=== PATIENT | female | born 1960 | race Hispanic/Latino ===

== ENCOUNTER 2016-12-21 17:58 | Observation (INO) | payer MEDICAID ==
--- NOTE | 2016-12-21 19:18 | CT ---
EXAM: CT Head Without Intravenous Contrast CLINICAL HISTORY: 56 years old, female; Signs and symptoms; Weakness, extremity; Left; Additional info: Code stroke TECHNIQUE: Axial computed tomography images of the head/brain without intravenous contrast. This CT exam was performed using one or more of the following dose reduction techniques: automated exposure control, adjustment of the mA and/or kV according to patient size, and/or use of iterative reconstruction technique. Coronal and sagittal reformatted images were created and reviewed. EXAM DATE/TIME: 12/21/2016 6:58 PM COMPARISON: CT - HEAD W/O CONTRAST 04/20/2016 5:10:04 PM FINDINGS: Brain: Ventricles are normal in size and configuration. There is no midline shift. There are no intra-axial or extra-axial mass lesions or areas of hemorrhage. There are no abnormal fluid collections. Bruno-white differentiation is maintained. Ventricles: See above. Bones: Cranial vault is intact. Soft tissues: unremarkable Sinuses: There is no acute sinusitis. Ears and mastoids: Middle ears and mastoids are unremarkable Orbits: Orbital contents are unremarkable. IMPRESSION: No acute intracranial abnormality
--- NOTE | 2016-12-21 19:31 | ED PDOC ---
HPI:STROKE - Time Time: 19:00 - Historian Historian: Patient - Chief Complaint Chief Complaint: Numbness - Onset Date: 12/21/16 Time: 13:00 Onset: Hours - Timing Timing: Improved - Context Context: Standing - Location Locate left: Upper extremity - Radiation Radiation: None - Severity of pain Maximum severity:: Mild Pain Scale:: 0 Severity Current: None Pain Scale:: 0 - Quality of Pain Quality of Pain:: Pressure - Associated Symptoms Associated symptoms:: Headache, Numbness - Exacerbated by Exacerbated by:: Nothing - Relieved by Relieved by:: Nothing - TPA Positive for Contraindication: Yes Reason tPA is not being Administered: symptoms resolved and onset is out of window for TPA - Notes: Notes:: Pt co dizziness, headache, left arm numbness and tongue numbness 6 hours ago around 1pm. All symptoms resolved except mild headache at this time. Denies weakness or slurred speech NIHSS Stroke Scale - Date/Time Evaluation Performed Date Performed: 12/21/16 Time Performed: 19:15 When Was NIHSS Performed: Baseline - How Severe is the Stroke Level of Consciousness: 0=Alert LOC to Questions: 0=Both comments correct LOC to commands: 0=Obeys both correctly Best Gaze: 0=Normal Visual: 0=No visual loss Facial: 0=Normal Motor Arm - Left: 0=No drift Motor Arm - Right: 0=No drift Motor Leg - Left: 0=No drift Motor Leg - Right: 0=No drift Limb Ataxia: 0=Absent Sensory: 0=Normal Best Language: 0=No aphasia Dysarthia: 0=Normal articulation Extinction & Inattention (Neglect): 0=Normal, no object Score: 0 rTPA Inclusion/Exclusion - Refusal of Treatment Patient Refused Treatment: No - Inclusion Criteria for Altepase Patient is 18 years or Older: Yes The Clinical Diagnosis of Ischemic Stroke That is Causing a Potentially Disabling Neurological Deficit: No Time of Onset is Well Established to be Less Than 270 Minute Before Treatment Would Begin: No Risk/Benefit Discussed With Patient/Family Member Present: No Past Medical History Reviewed: Historical Data, Nursing Documentation, Vital Signs Vital Signs: Last Vital Signs Temp 98.4 F 12/21/16 18:48 Pulse 88 12/21/16 18:48 Resp 18 12/21/16 18:48 BP 135/91 H 12/21/16 18:48 Pulse Ox 99 12/21/16 18:48 - Medical History PMH: Anxiety, HTN - Surgical History Surgical History: No Surg Hx - Family History Family History: States: Unknown Family Hx - Home Medications Home Medications: Ambulatory Orders Medication Instructions Recorded Nitrofurantoin Macrocrystals 100 mg PO BID #14 cap 11/24/15 [Macrobid] Ciprofloxacin HCl [Cipro] 250 mg PO BID #14 tab 12/04/15 Metoclopramide [Reglan] 10 mg PO Q6 PRN #12 tab 04/20/16 - Allergies Allergies/Adverse Reactions: Allergies Allergy/AdvReac Type Severity Reaction Status Date / Time No Known Allergies Allergy Verified 12/21/16 18:27 Review of Systems ROS Statement: Except As Marked, All Systems Reviewed And Found Negative Constitutional: Negative for: Fever Cardiovascular: Negative for: Chest Pain Respiratory: Negative for: Cough Gastrointestinal: Negative for: Abdominal Pain, Diarrhea Musculoskeletal: Negative for: Neck Pain, Back Pain Neurological: Positive for: Numbness, Headache, Dizziness. Negative for: Weakness, Incoordination, Change in Speech, Confusion, Seizures Physical Exam - Reviewed Nursing Documentation Reviewed: Yes Vital Signs Reviewed: Yes - Physical Exam Appears: Positive for: Non-toxic, No Acute Distress Head Exam: Positive for: ATRAUMATIC, NORMAL INSPECTION Skin: Positive for: Warm, Dry Eye Exam: Positive for: EOMI, PERRL Cardiovascular/Chest: Positive for: Regular Rate, Rhythm. Negative for: Tachycardia Respiratory: Positive for: Normal Breath Sounds. Negative for: Rales, Rhonchi, Wheezing Gastrointestinal/Abdominal: Positive for: Soft. 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 Negative for: Motor/Sensory Deficits , Gait, Aphasia, Facial Droop - Laboratory Results Result Diagrams: 12/21/16 19:00 - ECG ECG: Positive for: Interpreted By Me, Viewed By Me ECG Rhythm: Positive for: Normal QRS, Normal ST Segment, Sinus Rhythm. Negative for: ST/T Changes Rate: 67 O2 Sat by Pulse Oximetry: 99 Medical Decision Making Medical Decision Making: TIA vs CVA CT head labs neuro consult 1917 CT head read: no acute findings No TPA candidate. Discussed with Dr Bey at 1999. ASA ordered Swallow screen ordered Disposition - Clinical Impression Clinical Impression: TIA (transient ischemic attack) - Patient ED Disposition Is Patient to be Admitted: Yes Discussed With : Irving Mckay Doctor Will See Patient In The: Hospital Counseled Patient/Family Regarding: Studies Performed, Diagnosis - Disposition Disposition Time: 19:40 Condition: FAIR - Pt Status Changed To: Hospital Disposition Of: Observation - POA Present On Arrival: None
[2016-12-21 19:57] LABS: PARTIAL THROMBOPLASTIN TIME 25.6 SECONDS (23.3-32.5)
[2016-12-21 20:10] LABS: ALB/GLOB RATIO 1.1 (1.0-2.1); ALKALINE PHOSPHATASE 142 U/L (38-126); ALT/SGPT 37 U/L (9-52); AST/SGOT 37 U/L (14-36); BILIRUBIN,TOTAL 0.6 mg/dl (0.2-1.3); BLOOD UREA NITROGEN 20 mg/dl (7-17); CALCIUM 9.9 mg/dL (8.4-10.2); CARBON DIOXIDE 29 mmol/L (22-30); CHLORIDE 103 mmol/L (98-107); CHOLESTEROL 173 mg/dL (0-199); GFR AFRICAN-AMERICAN > 60; GLUCOSE,RANDOM 113 mg/dL (65-105); POTASSIUM 4.5 MMOL/L (3.6-5.0); SODIUM 144 mmol/l (132-148); TOTAL PROTEIN 8.5 G/DL (6.3-8.2)
[2016-12-21 21:57] LABS: BASO # 0.1 K/uL (0.0-0.2); BASO % 0.8 % (0.0-2.0); EOS # 0.1 K/uL (0.0-0.7); EOS % 0.7 % (0.0-4.0); HEMATOCRIT 40.2 % (34.0-47.0); LYMPH # 2.1 K/uL (1.0-4.3); LYMPH % 24.1 % (20.0-40.0); MEAN CELL VOLUME 89.5 fl (81.0-99.0); MEAN CORPUSCULAR HEMOGLOBIN 29.7 pg (27.0-31.0); MEAN CORPUSCULAR HGB CONC 33.2 g/dL (33.0-37.0); MEAN PLATELET VOLUME 7.5 fl (7.2-11.7); MONO # 0.5 K/uL (0.0-0.8); MONO % 5.6 % (0.0-10.0); NEUT # 5.9 K/uL (1.8-7.0); NEUT % 68.8 % (50.0-75.0); RED CELL DISTRIBUTION WIDTH 14.3 % (11.5-14.5); WHITE BLOOD COUNT 8.6 K/uL (4.8-10.8)
[2016-12-22 00:21] VITALS: RESP 18
[2016-12-22] MEDS ORDERED: Pneumococcal 23-Valent Vaccine IM ONE ×2 (06:30→14:29)
[2016-12-22 08:01] LABS: BASO % 0.5 % (0.0-2.0); EOS # 0.1 K/uL (0.0-0.7); EOS % 1.5 % (0.0-4.0); LYMPH # 2.3 K/uL (1.0-4.3); LYMPH % 30.8 % (20.0-40.0); MEAN CELL VOLUME 88.4 fl (81.0-99.0); MEAN CORPUSCULAR HGB CONC 33.9 g/dL (33.0-37.0); MEAN PLATELET VOLUME 8.1 fl (7.2-11.7); MONO # 0.5 K/uL (0.0-0.8); MONO % 7.1 % (0.0-10.0); NEUT # 4.5 K/uL (1.8-7.0); NEUT % 60.1 % (50.0-75.0); RED CELL DISTRIBUTION WIDTH 14.1 % (11.5-14.5); WHITE BLOOD COUNT 7.4 K/uL (4.8-10.8)
[2016-12-22 08:03] VITALS: TEMP 97.8
[2016-12-22 08:22] LABS: ALKALINE PHOSPHATASE 134 U/L (38-126); ALT/SGPT 37 U/L (9-52); AST/SGOT 30 U/L (14-36); BILIRUBIN,TOTAL 0.9 mg/dl (0.2-1.3); BLOOD UREA NITROGEN 20 mg/dl (7-17); CALCIUM 9.4 mg/dL (8.4-10.2); CARBON DIOXIDE 26 mmol/L (22-30); CHLORIDE 104 mmol/L (98-107); GFR AFRICAN-AMERICAN > 60; GLUCOSE,RANDOM 97 mg/dL (65-105); POTASSIUM 3.8 MMOL/L (3.6-5.0); SODIUM 142 mmol/l (132-148); TOTAL PROTEIN 8.1 G/DL (6.3-8.2)
--- NOTE | 2016-12-22 08:42 | RAD ---
HISTORY: code stroke COMPARISON: 11/24/2015 FINDINGS: LUNGS: No active pulmonary disease. PLEURA: No significant pleural effusion identified, no pneumothorax apparent. CARDIOVASCULAR: Heart is normal in size. There is mild atherosclerotic change of the aorta although limited on this portable radiograph. Trachea is midline. OSSEOUS STRUCTURES: No significant abnormalities. VISUALIZED UPPER ABDOMEN: Normal. OTHER FINDINGS: None. IMPRESSION: No focal infiltrate or CHF.
--- NOTE | 2016-12-22 08:55 | CON ---
DATE: 12/22/2016 REASON FOR CONSULTATION: TIA. HISTORY OF PRESENT ILLNESS: The patient is a 56-year-old female who came to the hospital with compla ints of left arm numbness and left tongue numbness. She came 6 hours after her symptom onset. After the episode, patient was experiencing headaches. The head symptoms lasted for about 28-30 minutes, and then they resolved. She did not have any focal weakness in her arms or legs. She has history of headaches in the past. She does get bad headaches associated with nausea, photophobia, and phonopho sudhir. Denies any other complaints. REVIEW OF SYSTEMS: Denies any chest pain, shortness of breath, abdominal pain, constipation, diarrhe a, dysuria, pyuria, cough, sputum production, hallucinations, skin rash. Positive for mild headaches . PAST MEDICAL HISTORY: Hypertension. MEDICATIONS: Losartan/hydrochlorothiazide. ALLERGIES: No known drug allergies. SOCIAL HISTORY: Denies smoking, use of alcohol or illicit drugs. FAMILY HISTORY: Reviewed and noncontributory to the case. PHYSICAL EXAMINATION: GENERAL: The patient is a middle-aged female lying on the bed in no acute distress. VITAL SIGNS: Her blood pressure is 135/79, heart rate is 69 per minute, breathing at a rate of 16 pe r minute, temperature is 97.8 degrees Fahrenheit. HEENT: Normocephalic, atraumatic. NECK: Supple. There are no carotid bruits. LUNGS: Clear. CARDIOVASCULAR: S1, S2 audible. No murmurs. ABDOMEN: Soft, nontender, bowel sounds present. NEUROLOGIC EXAMINATION: MENTAL STATUS: The patient is awake and alert, oriented to time, place, person. Speech is fluent. Naming and repetition normal. Memory and cognition are intact. CRANIAL NERVE EXAMINATION: Pupils are 3 mm bilaterally reactive to light. Visual cooley are full. Extraocular movements are intact. There is no facial asymmetry. Palate is upgoing bilaterally and t ongue is midline. MOTOR EXAMINATION: Tone is normal. Power is 5/5 bilaterally in all extremities. Reflexes +2 and sy mmetrical. Plantars downgoing bilaterally. CEREBELLAR EXAMINATION: [id number] shows no dysmetria. Gait is deferred at the moment. SENSORY: Intact to soft touch and pinprick. LABORATORY DATA: Labs reviewed, shows WBC of 8.6, hemoglobin 13.3, hematocrit 40.2 and platelets of 276. INR is 0.96. Sodium is 144, potassium 4.5, chloride 103, carbon dioxide 29, BUN of 20, creatin ine 0.9, and glucose of 113. She had a CT scan of the head done which shows no acute intracranial ab normality. IMPRESSION: Status post numbness of the left arm and left side of the tongue associated with headach es. This may have been a migraine accompaniment or transient ischemic attack. RECOMMENDATIONS: 1. The patient to have MRI of the brain without contrast. 2. The patient also to have a carotid Doppler. 3. The patient to be continued on aspirin. 4. Please continue other treatment and supportive care. Thank you for the opportunity to participate in the care of this patient. Mary Bey MD cc: [id number] TT: 12/22/2016 08:54:40 Confirmation # [id number] Dictation # [id number] lina
[2016-12-22] MEDS ORDERED: Patient's Own Med (Losartan/Hydrochlorothiazide [Losartan-Hctz 100-12.5 Mg Tab] 1 TAB) PO SCH (09:00)
--- NOTE | 2016-12-22 09:27 | CARD ---
APPROVED REPORT EKG Measurement Heart [id number] <Conclusion> Normal sinus rhythm Normal ECG
--- NOTE | 2016-12-22 10:44 | CP.PCM.HP ---
History of Present Illness - History of Present Illness History of Present Illness: pt admitted for headache tongue numbness starting yesterday approx 1300, resolved spontaneously. came to hospital w/ normal ct head. seen by neuro this am and is for mri brain and crotid dopplar today. had similar episode in [place] a few yrs ago per daughter. neuro exam normal atpresent nihss 0. case d/c w/ daughter, dr martin-neuro. bw reviewed. Present on Admission - Present on Admission Any Indicators Present on Admission: No Review of Systems - Neurological Neurological: As Per HPI, Headaches, Tingling Past Patient History - Infectious Disease Hx of Infectious Diseases: None - Past Medical History & Family History Past Medical History?: Yes - Past Social History Smoking Status: Never Smoked - CARDIAC Hx Cardiac Disorders: Yes Hx Hypertension: Yes - PULMONARY Hx Respiratory Disorders: No - NEUROLOGICAL Hx Neurological Disorder: No - HEENT Hx HEENT Problems: No - RENAL Hx Chronic Kidney Disease: No - ENDOCRINE/METABOLIC Hx Endocrine Disorders: No - HEMATOLOGICAL/ONCOLOGICAL Hx Blood Disorders: No - INTEGUMENTARY Hx Dermatological Problems: No - MUSCULOSKELETAL/RHEUMATOLOGICAL Hx Falls: No - GASTROINTESTINAL Hx Gastrointestinal Disorders: No - GENITOURINARY/GYNECOLOGICAL Hx Genitourinary Disorders: Yes Hx Urinary Tract Infection: Yes - PSYCHIATRIC Hx Substance Use: No - SURGICAL HISTORY Hx Surgeries: Yes Hx Tubal Ligation: Yes - ANESTHESIA Hx Anesthesia: Yes Hx Anesthesia Reactions: No Hx Malignant Hyperthermia: No Meds Allergies/Adverse Reactions: Allergies Allergy/AdvReac Type Severity Reaction Status Date / Time No Known Allergies Allergy Verified 12/21/16 18:27 Physical Exam - Constitutional Appears: Well, Non-toxic, No Acute Distress - Head Exam Head Exam: ATRAUMATIC, NORMAL INSPECTION, NORMOCEPHALIC - Eye Exam Eye Exam: EOMI, Normal appearance, PERRL Pupil Exam: NORMAL ACCOMODATION, PERRL - ENT Exam ENT Exam: Mucous Membranes Moist, Normal Exam - Neck Exam Neck exam: Positive for: Normal Inspection - Respiratory Exam Respiratory Exam: Clear to Auscultation Bilateral, NORMAL BREATHING PATTERN - Cardiovascular Exam Cardiovascular Exam: REGULAR RHYTHM, RRR, +S1, +S2 - GI/Abdominal Exam GI & Abdominal Exam: Normal Bowel Sounds, Soft. absent: Tenderness - Exam Bimanual exam: NORMAL BIMANUAL EXAM - Extremities Exam Extremities exam: Positive for: full ROM, normal capillary refill, normal inspection, pedal pulses present - Back Exam Back exam: NORMAL INSPECTION - Neurological Exam Neurological exam: Alert, CN II-XII Intact, Normal Gait, Oriented x3, Reflexes Normal - Psychiatric Exam Psychiatric exam: Normal Affect, Normal Mood - Skin Skin Exam: Dry, Intact, Normal Color, Warm Results - Vital Signs Recent Vital Signs: Last Vital Signs Temp 97.8 F 12/22/16 08:02 Pulse 69 12/22/16 09:02 Resp 18 12/22/16 08:02 BP 135/79 12/22/16 09:02 Pulse Ox 99 12/22/16 08:02 - Labs Result Diagrams: 12/22/16 06:00 12/22/16 06:00 Labs: Laboratory Results - last 24 hr 12/21/16 12/21/16 12/22/16 20:40 21:45 06:00 WBC 8.6 7.4 RBC 4.49 4.52 Hgb 13.3 13.6 Hct 40.2 40.0 MCV 89.5 88.4 MCH 29.7 30.0 MCHC 33.2 33.9 RDW 14.3 14.1 Plt Count 276 275 MPV 7.5 8.1 Neut % (Auto) 68.8 60.1 Lymph % (Auto) 24.1 30.8 [place] % (Auto) 5.6 7.1 Eos % (Auto) 0.7 1.5 Baso % (Auto) 0.8 0.5 Neut # 5.9 4.5 Lymph # 2.1 2.3 [place] # 0.5 0.5 Eos # 0.1 0.1 Baso # 0.1 0.0 Sodium Potassium Chloride Carbon Dioxide Anion Gap BUN Creatinine Est GFR ( Amer) Est GFR (Non-Af Amer) Random Glucose Calcium Total Bilirubin AST ALT Alkaline Phosphatase Total Protein Albumin Globulin Albumin/Globulin Ratio Blood Type Confirm O POSITIVE 12/22/16 06:00 WBC RBC Hgb Hct MCV MCH MCHC RDW Plt Count MPV Neut % (Auto) Lymph % (Auto) [place] % (Auto) Eos % (Auto) Baso % (Auto) Neut # Lymph # [place] # Eos # Baso # Sodium 142 Potassium 3.8 Chloride 104 Carbon Dioxide 26 Anion Gap 16 BUN 20 H Creatinine 0.7 Est GFR ( Amer) > 60 Est GFR (Non-Af Amer) > 60 Random Glucose 97 Calcium 9.4 Total Bilirubin 0.9 AST 30 ALT 37 Alkaline Phosphatase 134 H Total Protein 8.1 Albumin 4.1 Globulin 4.0 H Albumin/Globulin Ratio 1.0 Blood Type Confirm Assessment & Plan (1) DVT prophylaxis Assessment and Plan: scd and aehose, ambulation Status: Acute (2) TIA (transient ischemic attack) Assessment and Plan: mri, carotid dopplar asa, lipitor bp control dc if all negative Status: Acute (3) Hypertension Assessment and Plan: cont home meds Status: Acute Decision To Admit - Pt Status Changed To: Hospital Disposition Of: Observation - . Bed Request Type: Telemetry (b) Admitting Physician: Nereida De La Rosa
--- NOTE | 2016-12-22 11:38 | MRI ---
PROCEDURE: MRI BRAIN WITHOUT CONTRAST HISTORY: tia COMPARISON: Yesterday CT scan TECHNIQUE: Multiplanar, multisequence MR images of the brain were obtained without intravenous contrast enhancement. FINDINGS: HEMORRHAGE: None DWI: No evidence of an acute or early subacute infarction. BRAIN PARENCHYMA: No mass effect or edema. Minor age related atrophy. No significant abnormal signal in the white matter tracts. No cortical effacement. No cerebellopontine angle mass noted. Cervicomedullary junction is unremarkable. No tonsillar ectopia is noted. There is evidence of an empty sella. VENTRICLES: Unremarkable. No hydrocephalus. CRANIUM: Unremarkable. ORBITS: Grossly unremarkable. PARANASAL SINUSES/MASTOIDS: Minor mucosal thickening. Mastoid air cells are well aerated. VASCULAR SYSTEM: Skull base flow voids intact. OTHER FINDINGS: None. IMPRESSION: No evidence of recent infarct or mass lesion. Empty sella.
--- NOTE | 2016-12-22 13:19 | US ---
PROCEDURE: Duplex ultrasound of the carotid and vertebral arteries. HISTORY: tia COMPARISON: None available. TECHNIQUE: Grayscale and duplex Doppler evaluation of the cervical carotid and vertebral arteries were performed. The common carotid, carotid bifurcations and cervical ICA and proximal ECA were evaluated. The vertebral arteries were evaluated for gross patency and direction. FINDINGS: RIGHT CAROTID ARTERIES: Common Carotid Artery: Very mild atherosclerotic change and intimal thickening. Maximal flow velocity of 144 cm/s. Carotid Bifurcation: Mild atherosclerotic plaque in the right carotid bulb. Internal Carotid Artery:Mild plaque. Maximal flow velocity of 106 cm/s. External Carotid Artery (proximal branches): Grossly unremarkable Maximal flow velocity of 101 cm/s. ICA/CCA Ratio: Within normal limits LEFT CAROTID ARTERIES: Common Carotid Artery: Mild intimal thickening and plaque Maximal flow velocity of 129 cm/s. Carotid Bifurcation: Mild plaque Internal Carotid Artery:Very mild plaque. Maximal flow velocity of 88 cm/s. External Carotid Artery (proximal branches): Normal. Maximal flow velocity of 58 cm/s. ICA/CCA Ratio: Within normal limits VERTEBRAL ARTERIES: Right Vertebral Artery: Right vertebral artery was limited in its evaluation. This could not be documented with certainty. This could either represent atrophic, congenitally small right vertebral artery versus retrograde flow. Left Vertebral Artery: Patent. Antegrade flow. OTHER FINDINGS: Visualized thyroid glands are unremarkable. No obvious adenopathy was seen. IMPRESSION: No peak systolic velocity elevation to suggest carotid bifurcation stenosis. Limited evaluation of the right vertebral artery.
[2016-12-22 13:24] VITALS: BP 123/79; PULSE 72; O2SAT 97
--- NOTE | 2016-12-22 13:25 | CP.PCM.DIS ---
Provider - Provider Date of Admission: 12/21/16 19:45 Attending physician: Nereida De La Rosa MD Time Spent in preparation of Discharge (in minutes): 15 Diagnosis - Discharge Diagnosis (1) DVT prophylaxis Status: Acute (2) TIA (transient ischemic attack) Status: Acute (3) Hypertension Status: Acute Hospital Course - Lab Results Lab Results: Most Recent Lab Values WBC 7.4 K/uL (4.8-10.8) 12/22/16 06:00 RBC 4.52 Mil/uL (3.80-5.20) 12/22/16 06:00 Hgb 13.6 g/dL (12.0-16.0) 12/22/16 06:00 Hct 40.0 % (34.0-47.0) 12/22/16 06:00 MCV 88.4 fl (81.0-99.0) 12/22/16 06:00 MCH 30.0 pg (27.0-31.0) 12/22/16 06:00 MCHC 33.9 g/dL (33.0-37.0) 12/22/16 06:00 RDW 14.1 % (11.5-14.5) 12/22/16 06:00 Plt Count 275 K/uL (130-400) 12/22/16 06:00 MPV 8.1 fl (7.2-11.7) 12/22/16 06:00 Neut % (Auto) 60.1 % (50.0-75.0) 12/22/16 06:00 Lymph % (Auto) 30.8 % (20.0-40.0) 12/22/16 06:00 [place] % (Auto) 7.1 % (0.0-10.0) 12/22/16 06:00 Eos % (Auto) 1.5 % (0.0-4.0) 12/22/16 06:00 Baso % (Auto) 0.5 % (0.0-2.0) 12/22/16 06:00 Neut # 4.5 K/uL (1.8-7.0) 12/22/16 06:00 Lymph # 2.3 K/uL (1.0-4.3) 12/22/16 06:00 [place] # 0.5 K/uL (0.0-0.8) 12/22/16 06:00 Eos # 0.1 K/uL (0.0-0.7) 12/22/16 06:00 Baso # 0.0 K/uL (0.0-0.2) 12/22/16 06:00 PT 10.0 SECONDS (9.6-11.2) 12/21/16 19:00 INR 0.96 (0.92-1.08) 12/21/16 19:00 APTT 25.6 SECONDS (23.3-32.5) 12/21/16 19:00 Sodium 142 mmol/l (132-148) 12/22/16 06:00 Potassium 3.8 MMOL/L (3.6-5.0) 12/22/16 06:00 Chloride 104 mmol/L (98-107) 12/22/16 06:00 Carbon Dioxide 26 mmol/L (22-30) 12/22/16 06:00 Anion Gap 16 (10-20) 12/22/16 06:00 BUN 20 mg/dl (7-17) H 12/22/16 06:00 Creatinine 0.7 mg/dL (0.7-1.2) 12/22/16 06:00 Est GFR ( Amer) > 60 12/22/16 06:00 Est GFR (Non-Af Amer) > 60 12/22/16 06:00 POC Glucose (mg/dL) 110 mg/dL (65-110) 12/21/16 18:56 Random Glucose 97 mg/dL (65-105) 12/22/16 06:00 Hemoglobin A1c 5.8 % (4.2-6.5) 12/21/16 19:00 Calcium 9.4 mg/dL (8.4-10.2) 12/22/16 06:00 Total Bilirubin 0.9 mg/dl (0.2-1.3) 12/22/16 06:00 AST 30 U/L (14-36) 12/22/16 06:00 ALT 37 U/L (9-52) 12/22/16 06:00 Alkaline Phosphatase 134 U/L (38-126) H 12/22/16 06:00 Troponin I < 0.0120 ng/mL (0.00-0.120) 12/21/16 19:00 Total Protein 8.1 G/DL (6.3-8.2) 12/22/16 06:00 Albumin 4.1 g/dL (3.5-5.0) 12/22/16 06:00 Globulin 4.0 gm/dL (2.2-3.9) H 12/22/16 06:00 Albumin/Globulin Ratio 1.0 (1.0-2.1) 12/22/16 06:00 Triglycerides 144 mg/DL (0-149) 12/21/16 19:00 Cholesterol 173 mg/dL (0-199) 12/21/16 19:00 LDL Cholesterol Direct 105 mg/dL (0-129) 12/21/16 19:00 HDL Cholesterol 38 MG/DL (30-70) 12/21/16 19:00 Blood Type O POSITIVE 12/21/16 19:00 Blood Type Confirm O POSITIVE 12/21/16 20:40 Antibody Screen Negative 12/21/16 19:00 BBK History Checked No verified bt 12/21/16 19:00 Discharge Exam - Head Exam Head Exam: ATRAUMATIC, NORMAL INSPECTION, NORMOCEPHALIC Discharge Plan - Discharge Medications Prescriptions: Aspirin [Aspirin Chewable] 81 mg PO DAILY #30 tab Atorvastatin [Lipitor] 10 mg PO DAILY #30 tab - Follow Up Plan Condition: FAIR Disposition: HOME/ ROUTINE Additional Instructions: cleared by neuro, mri/us negative. f/u rmg saturday, rted prn, meds per med rec final dx-tia
== END 2016-12-22 15:25 | disposition home or self-care (01) ==
LOC: H.ER 17:58 → H.ERHOLD 19:45 → H.TEL 20:46
PROVIDERS: ADMIT Family Medicine; ATTEND Family Medicine
DX: G45.9 Transient cerebral ischemic attack, unspecified (principal); I10 Essential (primary) hypertension; F41.9 Anxiety disorder, unspecified; Z23 Encounter for immunization; R51 Headache